=== PATIENT | male | born 2000 | race African-American/Black ===

== ENCOUNTER 2022-11-22 17:32 | Emergency (ER) | payer OTHER, SELFPAY ==
--- NOTE | ~2022-11-22 | US_ITS ---
EXAMINATION: US scrotum doppler DATE: 11/22/2022 18:33 INDICATION: Testicular pain and swelling. TECHNIQUE: Grayscale and Doppler ultrasound images of the testes were obtained. COMPARISON: None. FINDINGS: The right testis measures 4.2 x 2.3 x 3.0 cm. The left testis measures 4.6 x 2.5 x 2.9 cm. There is normal vascular flow to both testes. The right epididymis is enlarged and hypoechoic with in creased vascular flow. The left epididymis demonstrates a 4 mm cyst. There is a small right hydrocele . IMPRESSION: 1. Right-sided epididymitis. 2. Small right hydrocele. Reviewed, dictated and finalized at location E.
[2022-11-22 17:53] VITALS: BP 118/68; PULSE 84; RESP 20; TEMP 36.5; O2SAT 100
[2022-11-22 20:07] VITALS: BP 112/73; PULSE 65; RESP 15; O2SAT 98
--- NOTE | 2022-11-22 20:13 | ED.GENADULT ---
HPI - General Adult General Chief complaint: Urogenital-Male Stated complaint: testicular swelling and pain Time Seen by Provider: 11/22/22 20:02 History of Present Illness HPI narrative: Patient a 22-year-old gentleman who presents the emergency department with chief complaint of right testicle pain. Patient reports for the last several days he has been having pain in his right scrotum and right testicle. The patient reports the pain is worse with movement and worse whenever he is at work and having to move around patient reports that he has had an STI approximately a month ago and reports that he has had some occasional discomfort with urination. Patient reports he previously tested positive for chlamydia. Related Data Allergies Allergy/AdvReac Type Severity Reaction Status Date / Time No Known Allergies Allergy Verified 11/22/22 17:56 Review of Systems Review of Systems: A 10 system review of systems was completed on the patient and is negative except for what is stated in the HPI. Nursing and ancillary documentation was reviewed. Exam Narrative: GENERAL: Well-appearing, well-nourished, and in no acute distress. HEAD: Normocephalic, atraumatic. EYES: PERRLA and EOMI. ENT: Nares clear, no rhinorrhea or epistaxis. Mucous membranes moist. NECK: Supple. CHEST: Clear to auscultation. No respiratory distress. HEART: Regular rate and rhythm. No murmur heard. Normal peripheral pulses. ABDOMEN: Soft, nontender, nondistended, normal active bowel sounds. : The right testicle is tender particular in the epididymis area there is no crepitance there is no necrotic tissue EXTREMITIES: Normal range of motion. No edema. SKIN: Warm, dry, no rash. NEURO: No focal deficits. Alert and oriented x3. PSYCH: Normal mood and affect. Course Vital Signs Vital signs: Vital Signs Temperature 36.5 C 11/22/22 17:53 Pulse Rate 84 11/22/22 17:53 Respiratory Rate 20 11/22/22 17:53 Blood Pressure 118/68 11/22/22 17:53 Pulse Oximetry 100 11/22/22 17:53 Oxygen Delivery Room Air 11/22/22 17:53 Temperature 36.5 C 11/22/22 17:53 Pulse Rate 65 11/22/22 20:07 Respiratory Rate 15 11/22/22 20:07 Blood Pressure 112/73 11/22/22 20:07 Pulse Oximetry 98 11/22/22 20:07 Oxygen Delivery Room Air 11/22/22 17:53 Medical Decision Making MDM Narrative Medical decision making narrative: Differential diagnosis includes epididymitis, testicular torsion, Mannie's gangrene, STI The patient exam is not consistent with Mannie's Ultrasound showed no evidence of torsion but did show evidence of epididymitis of the right testicle Given the patient's history of STI and age the patient will be treated empirically with half a gram of Rocephin and doxycycline 100 mg Vital Signs Vital Signs: Vital Signs Temperature 36.5 C 11/22/22 17:53 Pulse Rate 84 11/22/22 17:53 Respiratory Rate 20 11/22/22 17:53 Blood Pressure 118/68 11/22/22 17:53 Pulse Oximetry 100 11/22/22 17:53 Oxygen Delivery Room Air 11/22/22 17:53 Temperature 36.5 C 11/22/22 17:53 Pulse Rate 65 11/22/22 20:07 Respiratory Rate 15 11/22/22 20:07 Blood Pressure 112/73 11/22/22 20:07 Pulse Oximetry 98 11/22/22 20:07 Oxygen Delivery Room Air 11/22/22 17:53 Discharge Plan Discharge Clinical Impression: Epididymitis Patient Disposition: Home, Self-Care Condition: Stable Instructions: Antibiotic Form, Epididymitis (ED) Prescriptions: New doxycycline hyclate 100 mg tablet 100 mg PO BID Qty: 14 0RF Follow-up/Referrals: PHYSICIAN,BONING RO[employer] WORKER [Primary Care Provider] - Teddy Garvey MD [Physician] - Time of Disposition: 20:16
[2022-11-22] MEDS: cefTRIAXone 1 GM VIAL 0.5 GM IM (20:27)
[2022-11-22] MEDS: DOXYCYCLINE HYCLATE 100 MG TABLET PO (20:27)
[2022-11-22] MEDS: LIDOCAINE HCL 1% LOCAL INJ 10 ML VIAL (20:28)
[2022-11-22 20:32] VITALS: BP 117/74; PULSE 84; RESP 18; O2SAT 100
[2022-11-22] MEDS: HYDROcodone/acetaminophen (*CRX) 5-325 MG TABLET 1 TAB PO (20:40)
[2022-11-22 21:16] LABS: Appearance Urine Clear (Clear); Bacteria Urine None Seen /hpf; Bilirubin Urine Negative (Negative); Blood Urine Negative (Negative); Color Urine Dark Yellow (Yellow); Glucose Urine UA Negative (Negative); Ketones Urine Trace mg/dL (Negative); Leukocyte Esterase Ur 1+ LEU/UL (Negative); Need Manual Microscopic Reviewed; Nitrate Urine Negative (Negative); Non Pathogenic Casts 0-2; Protein Urine Trace mg/dL (Negative); RBC Urine 0-2 /hpf (0-2); Specific Grav Ur 1.029 (1.001-1.035); Squamous Epithelial Cell Urine None seen /hpf (Few); WBC Urine >100 /hpf; pH Urine 6.5 (5.0-9.0)
[2022-11-22 21:17] LABS: Add Urine Microscopic? YES
== END 2022-11-22 20:48 | disposition home or self-care (01) ==
PROVIDERS: Emergency Medicine; Emergency Provider Emergency Medicine
DX: N45.1 Epididymitis (principal)
CPT/HCPCS: 76870; 81001; 87086; 87491; 87591; 93976; 96372; 99284; A9270; J0696

== ENCOUNTER 2023-03-16 15:42 | Emergency (ER) | payer OTHER, SELFPAY ==
--- NOTE | ~2023-03-16 | XR_ITS ---
EXAMINATION: XR hand LT min 3V DATE: 03/16/2023 16:06 INDICATION: Left fourth and fifth digit pain after moving a dresser TECHNIQUE: Posteroanterior, oblique and lateral views of the left hand were obtained. COMPARISON: None. FINDINGS: Subtle linear lucency at the tuft of the left fifth digit suspicious for nondisplaced fracture. Bone alignment remains essentially anatomic. No other fractures identified. Joint spaces are normal. Mild soft tissue swelling at the palmar aspect of the left fifth distal phalanx. IMPRESSION: 1. Nondisplaced tuft fracture at the left fifth distal phalanx. Reviewed, dictated and finalized at location A.
[2023-03-16 15:58] VITALS: BP 120/61; PULSE 62; RESP 16; TEMP 36.9; O2SAT 100
--- NOTE | 2023-03-16 15:58 | ED.UPPEXIN ---
HPI - Extremity Injury (Upper) General Chief Complaint: Extremity Injury, Upper Stated Complaint: Left Hand Pain Time Seen by Provider: 03/16/23 15:46 Source: patient Mode of arrival: ambulatory Limitations: no limitations History of Present Illness HPI narrative: Livan is a 23-year-old male patient presenting to clinic today with complaints of left hand pain-he reports he dropped a piece of furniture on his left hand. Has pain to the 4th and 5th fingers. Swelling and bruising noted to the 5th finger Related Data Home Medications Medication Instructions Recorded Confirmed No Home Medications 03/16/23 03/16/23 Allergies Allergy/AdvReac Type Severity Reaction Status Date / Time No Known Allergies Allergy Verified 03/16/23 15:54 Review of Systems Review of Systems: Pertinent positives per HPI. Patient denies any fever, chills, rash, headache, visual changes, dizziness, cough, runny nose, sore throat, shortness of breath, chest pain, palpitations, nausea, vomiting, diarrhea, constipation, abdominal pain, or any urinary issues. PMFSH Comments At the time of my signature, I reviewed and agree with the nursing past medical, surgical, social, and family history. There is no relevant family history pertinent to the patient complaint. Exam Narrative: General: Well-developed, well nourished, in no apparent distress Head: Normocephalic, atraumatic. Cardio: Regular rate and rhythm, s1 and s2 normal, no murmur appreciated. Resp: Clear to auscultation bilaterally, no rhonchi, rales, wheezing or rubs. Musculoskeletal: No deformity, tender to palpation over the 4th D IP joint and 5th proximal and distal phalanx, bruising and swelling noted to the distal left 5th phalanx grossly normal range of motion, muscle strength strong and equal, peripheral pulse strong, no edema, no cyanosis, normal gait and station Course Course Emergency Course: Portions of this record may have been created with voice recognition software. Level of Care: Express Care Visit Vital Signs Vital signs: Vital Signs Temperature 36.9 C 03/16/23 15:58 Pulse Rate 62 03/16/23 15:58 Respiratory Rate 16 03/16/23 15:58 Blood Pressure 120/61 03/16/23 15:58 Pulse Oximetry 100 03/16/23 15:58 Oxygen Delivery Room Air 03/16/23 15:58 Temperature 36.9 C 03/16/23 15:58 Pulse Rate 62 03/16/23 15:58 Respiratory Rate 16 03/16/23 15:58 Blood Pressure 120/61 03/16/23 15:58 Pulse Oximetry 100 03/16/23 15:58 Oxygen Delivery Room Air 03/16/23 15:58 Vital signs reviewed MDM - Extremity Injury (Upper) MDM Narrative Medical decision making narrative: At the time of visit patient is resting comfortably on exam table. X-ray of the left hand was performed and shows a non displaced tuft fracture of the left 5th distal phalanx. Metal finger splint was applied and Ortho referral given. Supportive measures were discussed with the patient he voiced understanding of discharge instructions and agrees to treatment plan. Differential Diagnosis Differential diagnosis: Likely finger sprain, dislocation of finger, fracture of hand and other (Finger fracture) Imaging Data Radiologist's impression: ITS Impressions Hand X-Ray 03/16/23 16:07 IMPRESSION: 1. Nondisplaced tuft fracture at the left fifth distal phalanx. Discharge Plan Discharge Clinical Impression: Finger fracture, left Qualifiers: Encounter type: initial encounter Finger: little finger Fracture type: closed Phalanx: distal Fracture alignment: displaced Qualified Code(s): S62.637A - Displaced fracture of distal phalanx of left little finger, initial encounter for closed fracture Patient Disposition: Home, Self-Care Condition: Stable Instructions: Antibiotic Form, Finger Fracture (ED) Additional Instructions: X-ray shows a nondisplaced tuft fracture of the left 5th distal phalanx Rest, ice, elevate, and wear metal finger splint as
== END 2023-03-16 16:23 | disposition home or self-care (01) ==
PROVIDERS: Emergency Provider Nurse Practitioner Family; PCP Emergency Medicine
DX: S62.637A Displaced fracture of distal phalanx of left little finger, initial encounter for closed fracture (principal); W20.8XXA Other cause of strike by thrown, projected or falling object, initial encounter
CPT/HCPCS: 29130; 73130; 99214; G0463

== ENCOUNTER 2023-07-25 17:51 | Emergency (ER) | payer SELFPAY ==
--- NOTE | ~2023-07-25 | US_ITS ---
EXAMINATION: US scrotum doppler DATE: 07/25/2023 19:13 INDICATION: l testicular pain/swelling . TECHNIQUE: Grayscale and Doppler ultrasound images of the testes were obtained. COMPARISON: 11/22/2022. FINDINGS: The right testis measures 3.0 x 3.5 x 2.5 cm. The left testis measures 3.5 x 2.3 x 3.6 cm. No testicular mass. There is normal vascular flow to both testes. The right epididymis is normal with normal vascular flow. 3 mm right epididymal cyst. The left epididymis is normal with normal vascular flow. There is no varicocele or hydrocele. IMPRESSION: Normal scrotal ultrasound findings. Reviewed, dictated and finalized at location K.
[2023-07-25 17:57] VITALS: BP 122/60; PULSE 85; RESP 20; TEMP 36.5; O2SAT 100
--- NOTE | 2023-07-25 19:19 | PC.NURSE ---
Report received from Marla, PT a+ox 4 , no distress noted.
--- NOTE | 2023-07-25 20:56 | ED.GENADULT ---
HPI - General Adult General Chief complaint: Urogenital-Male Stated complaint: left sided testicular pain Time Seen by Provider: 07/25/23 19:26 History of Present Illness HPI narrative: patient is 21-year-old gentleman who presents emergency department with chief complaint of testicle pain and swelling. The patient reports that he is currently being treated with doxycycline for STI and reports that he noticed that his left testicle is slightly enlarged and tender. Patient reports the pain is not improved by anything denies dysuria reports that recently was treated with Rocephin and is currently on doxycycline for possible STI. Related Data Allergies Allergy/AdvReac Type Severity Reaction Status Date / Time No Known Allergies Allergy Verified 07/25/23 18:43 Review of Systems Review of Systems: A 10 system review of systems was completed on the patient and is negative except for what is stated in the HPI. Nursing and ancillary documentation was reviewed. Exam Narrative: GENERAL: Well-appearing, well-nourished, and in no acute distress. HEAD: Normocephalic, atraumatic. EYES: PERRLA and EOMI. ENT: Nares clear, no rhinorrhea or epistaxis. Mucous membranes moist. NECK: Supple. CHEST: Clear to auscultation. No respiratory distress. HEART: Regular rate and rhythm. No murmur heard. Normal peripheral pulses. ABDOMEN: Soft, nontender, nondistended, normal active bowel sounds. : Left testicle is slightly tender there is no erythema there is no necrotic tissue, there is no fluctuance. EXTREMITIES: Normal range of motion. No edema. SKIN: Warm, dry, no rash. NEURO: No focal deficits. Alert and oriented x3. PSYCH: Normal mood and affect. Course Vital Signs Vital signs: Vital Signs Temperature 36.5 C 07/25/23 17:57 Pulse Rate 85 07/25/23 17:57 Respiratory Rate 20 07/25/23 17:57 Blood Pressure 122/60 07/25/23 17:57 Pulse Oximetry 100 07/25/23 17:57 Oxygen Delivery Room Air 07/25/23 17:57 Temperature 36.5 C 07/25/23 17:57 Pulse Rate 85 07/25/23 17:57 Respiratory Rate 20 07/25/23 17:57 Blood Pressure 122/60 07/25/23 17:57 Pulse Oximetry 100 07/25/23 17:57 Oxygen Delivery Room Air 07/25/23 17:57 Medical Decision Making MDM Narrative Medical decision making narrative: Differential diagnosis includes orchitis, epididymitis, testicular torsion, UTI, STI scrotal ultrasound was obtained that showed FINDINGS: The right testis measures 3.0 x 3.5 x 2.5 cm. The left testis measures 3.5 x 2.3 x 3.6 cm. No testicular mass. There is normal vascular flow to both testes. The right epididymis is normal with normal vascular flow. 3 mm right epididymal cyst. The left epididymis is normal with normal vascular flow. There is no varicocele or hydrocele. IMPRESSION: Normal scrotal ultrasound findings. urinalysis showed no evidence current UTI GC chlamydia was sent on the patient Vital Signs Vital Signs: Vital Signs Temperature 36.5 C 07/25/23 17:57 Pulse Rate 85 07/25/23 17:57 Respiratory Rate 20 07/25/23 17:57 Blood Pressure 122/60 07/25/23 17:57 Pulse Oximetry 100 07/25/23 17:57 Oxygen Delivery Room Air 07/25/23 17:57 Temperature 36.5 C 07/25/23 17:57 Pulse Rate 85 07/25/23 17:57 Respiratory Rate 20 07/25/23 17:57 Blood Pressure 122/60 07/25/23 17:57 Pulse Oximetry 100 07/25/23 17:57 Oxygen Delivery Room Air 07/25/23 17:57 Lab Data Labs: Lab Results 07/25/23 07/25/23 Range/Units 21:04 21:06 Urine Color Yellow (Yellow) Urine Appearance Clear (Clear) Urine pH 6.5 (5.0-9.0) Ur Specific [place] 1.019 (1.001-1.035) Urine Protein Negative (Negative) mg/dL Urine Glucose (UA) Negative (Negative) mg/dL Urine Ketones Trace H (Negative) mg/dL Ur Blood (Man) Negative (Negative) Urine Nitrate Negative (Negative) Urine Bilirubin Negative (Negative) Urine Ur
[2023-07-25] MEDS: KETOROLAC 30 MG/ML VIAL (*BKC) IM (21:03)
[2023-07-25 21:22] LABS: Appearance Urine Clear (Clear); Bilirubin Urine Negative (Negative); Blood Urine Negative (Negative); Color Urine Yellow (Yellow); Glucose Urine UA Negative (Negative); Ketones Urine Trace mg/dL (Negative); Leukocyte Esterase Ur Negative LEU/UL (Negative); Nitrate Urine Negative (Negative); Protein Urine Negative (Negative); Specific Grav Ur 1.019 (1.001-1.035); Urobilinogen Urine 0.2 mg/dL (<2.0); pH Urine 6.5 (5.0-9.0)
[2023-07-25 21:30] LABS: Add Urine Microscopic? NO
[2023-07-25 21:57] VITALS: BP 127/76; PULSE 86; RESP 16; O2SAT 98
[2023-07-25 22:50] LABS: Chlamydia trachomatis NOT DETECTED (NOT DETECTE); Neisseria gonorrhoeae PCR NOT DETECTED (NOT DETECTE)
== END 2023-07-25 21:58 | disposition home or self-care (01) ==
PROVIDERS: Emergency Provider Emergency Medicine; PCP Emergency Medicine
DX: N50.812 Left testicular pain (principal)
CPT/HCPCS: 76870; 81003; 87491; 87591; 93976; 96372; 99284; J1885